=== PATIENT | female | born 1975 | race Caucasian/White ===

== ENCOUNTER → 2017-04-28 14:05 | Outpatient (CLI) | payer OTHER, SELFPAY ==
--- NOTE | 2017-04-28 14:10 | US_ITS ---
US thyroid HISTORY: History of thyroid nodules. ITS.REASON: THYROID NODULE ORDERING PHYSICIAN: Belinda Gipson PATIENT AGE: 41 years COMPARISON: None available FINDINGS: Right lobe: The right lobe is 4.9 x 1.4 x 2.2 cm. Small area of isoechogenicity along the posterior aspect of the right lobe centrally at 7 mm and may be due to a parathyroid gland. No obvious intrathyroid nodules evident on the right. Left lobe: 4.5 x 1 x 1.6 cm with some vague decreased echogenicity posteriorly in the mid polar region measuring approximate 6 mm suggesting a small isoechoic nodule. Isthmus: Minimally thickened at 4 mm IMPRESSION: 1. Mild bilateral thyroid enlargement. 2. Ill-defined 6 mm isoechoic nodule in the left with low suspicion for malignancy. 3. Probable parathyroid gland mid polar region on the right
== END ==
PROVIDERS: PCP Nurse Practitioner Family; Visit Provider Nurse Practitioner Family
DX: E04.1 Nontoxic single thyroid nodule (principal)
CPT/HCPCS: 76536

== ENCOUNTER → 2017-09-04 11:00 | Outpatient (CLI) | payer OTHER, SELFPAY ==
--- NOTE | 2017-09-04 12:07 | MR_ITS ---
MR head/brain wo/w con HISTORY: Dizziness with headache ITS.REASON: DIZZINESS ORDERING PHYSICIAN: Belinda Gipson PATIENT AGE: 42 years Comparison: TECHNIQUE: Standard multiplanar multiecho sequences are performed without and with gadolinium enhancement . FINDINGS: No midline shift, mass effect, intracranial hemorrhage, or hydrocephalus is evident. No enhancing lesions. No evidence of acute infarction. The cerebellopontine angles, cerebellum, and brainstem are unremarkable. There is a small subcortical T2 hyperintensity in the right frontal lobe nonspecific. This measures approximately 2 to 3 mm. This may be due to only seen on the axial and not on the coronal image. No mastoid effusion or sinus air-fluid level. No large aneurysms are evident. Small aneurysms may not be seen with this technique and may be better evaluated for with MRA clinically warranted. IMPRESSION: 1. No acute finding. 2. Small T2 white matter hyperintensity of the right parietal frontal junction which may be due to artifact. 3 month follow-up suggested to confirm stability or resolution
== END ==
PROVIDERS: PCP Nurse Practitioner Family; Visit Provider Nurse Practitioner Family
DX: R42 Dizziness and giddiness (principal)
CPT/HCPCS: 70553; A9576

== ENCOUNTER → 2017-11-10 10:43 | Outpatient (CLI) | payer OTHER, SELFPAY ==
--- NOTE | 2017-11-10 11:01 | CT_ITS ---
CT soft tissue neck w con INDICATION: ITS.REASON: NECK SWELLING ORDERING PHYSICIAN: Belinda Gipson PATIENT AGE: 42 years COMPARISON: None TECHNIQUE: Axial images are obtained with contrast. Sagittal and coronal reformatted images are reviewed as well. All CT scans at the facility use one or more dose reduction, viz: automated exposure control; ma/kV adjustment per patient size (including targeted exams where dose is matched to indication; i.e. head); or iterative reconstruction technique. FINDINGS: The parotid glands and submandibular glands are normal and symmetrical. The valleculae and piriform sinuses appear normal. The thyroid gland appears grossly normal. The common carotid arteries and internal carotid arteries appear normal bilaterally. There is no abnormal cervical lymphadenopathy noted. The lung apices appear clear bilaterally. The prevascular superior mediastinum if I talked like this it doesn't for deep to is unremarkable. IMPRESSION: Essentially unremarkable CT scan the neck with no abnormal cervical lymphadenopathy identified.
== END ==
PROVIDERS: PCP Family Medicine; Visit Provider Nurse Practitioner Family
DX: R22.1 Localized swelling, mass and lump, neck (principal)
CPT/HCPCS: 70491; Q9967

== ENCOUNTER → 2017-12-15 17:54 | Outpatient (CLI) | payer OTHER, SELFPAY | PROVIDERS: PCP Nurse Practitioner Family; Visit Provider Nurse Practitioner Family | DX: G47.30 Sleep apnea, unspecified (principal); G47.10 Hypersomnia, unspecified; R51 Headache; R06.83 Snoring | CPT/HCPCS: 95806 ==

== ENCOUNTER → 2018-01-13 09:30 | Outpatient (CLI) | payer OTHER, SELFPAY | PROVIDERS: PCP Nurse Practitioner Family; Visit Provider Nurse Practitioner Family | DX: R07.89 Other chest pain (principal); R94.31 Abnormal electrocardiogram [ECG] [EKG]; I10 Essential (primary) hypertension | CPT/HCPCS: 93017 ==

== ENCOUNTER → 2018-03-08 08:22 | Outpatient (CLI) | payer OTHER, SELFPAY ==
--- NOTE | 2018-03-08 08:24 | MR_ITS ---
MR head/brain wo/w con Ordering Physician: Silvia Quiroga MD Patient Age: 42 years: Female HISTORY: ITS.REASON: 3 month f/u abnormal prior imaging, migraine HISTORY migraine headaches daily use on the right side. TECHNIQUE: Pre and postcontrast imaging of brain : Precontrast Multiplanar FLAIR, T1, T2 weighted images along with axial diffusion/ADC imaging performed on 1.5 T. Siemens, MRI. Postcontrast imaging [id number] mLmL ProHance T1-weighted images axial & coronal plane performed COMPARISON : FINDINGS Normal anatomy. Normal cranial cervical junction. Sella, ventricles and basal cisterns appear satisfactory. Diffusion images show no recent or acute infarct or ischemia. Cerebral hemispheres appear normal. Normal benavidez and white matter patterns with no remarkable white matter findings or lesions on the sensitive FLAIR image set.. Posterior fossa appears satisfactory . CP angles clear. IACs unremarkable. Postcontrast images show no abnormal areas of enhancement. Scalp and skull unremarkable. The visualized paranasal sinuses are clear. Mastoid air cells well-developed and clear. Orbits unremarkable. IMPRESSION: Negative MRI of the brain. No significant findings. Within normal limits. No abnormal areas of enhancement L
== END ==
PROVIDERS: PCP Nurse Practitioner Family; Visit Provider Specialist
DX: R93.0 Abnormal findings on diagnostic imaging of skull and head, not elsewhere classified (principal); G43.909 Migraine, unspecified, not intractable, without status migrainosus; G47.33 Obstructive sleep apnea (adult) (pediatric); R51 Headache
CPT/HCPCS: 70553; A9576

== ENCOUNTER 2018-11-04 16:30 | Outpatient (RCR) | payer OTHER, SELFPAY | END 2018-11-04 16:35 | disposition home or self-care (01) | LOC: PT 16:30 | PROVIDERS: Visit Provider Nurse Practitioner Family | DX: M25.511 Pain in right shoulder (principal); G89.29 Other chronic pain; M62.89 Other specified disorders of muscle; G43.909 Migraine, unspecified, not intractable, without status migrainosus | CPT/HCPCS: 97010; 97012; 97014; 97035; 97110; 97140; 97163; G0283 ==

== ENCOUNTER → 2018-11-30 14:59 | Outpatient (POV) | payer OTHER, SELFPAY | PROVIDERS: Visit Provider Dermatology | DX: Z00.00 Encounter for general adult medical examination without abnormal findings (principal) ==

== ENCOUNTER → 2019-08-15 09:41 | Outpatient (CLI) | payer OTHER, SELFPAY ==
--- NOTE | 2019-08-15 09:45 | MM_ITS ---
PROCEDURE: MM DIG SCREENING MAMM BI W/CAD Digital Breast Tomosynthesis Included CLINICAL INDICATION: SCREENING There is no personal or of breast cancer. COMPARISON: No exams were available for comparison TECHNIQUE: Standard CC and MLO images and 3D Tomosynthesis was obtained. R2 CAD reviewed. FINDINGS: Moderate diffuse fibroglandular densities are seen in the central portions of both breasts and the findings are fairly symmetrical bilaterally. There is a benign-appearing calcification deep to the nipple left breast. There is no suspicious lesion and no suspicious microcalcifications. There are small nodes in both axilla. IMPRESSION: Moderate breast density with no suspicious lesions seen BI-RAD Category: 2 Benign Finding(s) FOLLOW-UP: 1YR 1 Year Follow-up (A letter has been sent to the patient regarding results of the study.) Dictated by: Dr. Fernando Colin MD 08/15/2019 18:[address] Fernando Colin MD in [place] 08/15/2019 18:08
== END ==
PROVIDERS: PCP Family Medicine; Visit Provider Family Medicine
DX: Z12.31 Encounter for screening mammogram for malignant neoplasm of breast (principal)
CPT/HCPCS: 77063; 77067

== ENCOUNTER → 2020-01-20 09:27 | Outpatient (CLI) | payer OTHER, SELFPAY ==
--- NOTE | 2020-01-20 09:27 | MR_ITS ---
PROCEDURE: MR HEAD/BRAIN WO CON Referring Doctor: Silvia Quiroga Patient Age:44Y CLINICAL INDICATION: memory impairment, headaches Migraines for many years worsening over the past 4 years. Visual disturbances with migraines. COMPARISON: MR BRAINWW MR head/brain wo/w con from 03/08/2018 TECHNIQUE: Multisequence imaging but T1, T2, FLAIR, ADC/diffusion image sequences utilized. Using primarily axial imaging but also sagittal T2 coronal FLAIR included. No IV contrast FINDINGS: Negative MRI of the brain. No abnormalities evident Normal anatomy. Normal cranial cervical junction. Pituitary and sella unremarkable suprasellar region satisfactory no acute nor prior infarct evident. No significant deep white-matter findings but no deep white-matter lesions on FLAIR image sequences.. The ventricles and basal cisterns appear satisfactory. No extra-axial findings. Posterior fossa appears normal. CP angles clear. What is seen at 7th and 8th nerve unremarkable on this noncontrast study. The visualized paranasal sinuses are clear only noting some borderline mucosal thickening at ethmoid air cells.+. Mastoid air cells IAC's unremarkable. Middle ear appears free from fluid Note: On final review note slight increased signal skull and scalp just superior to the frontal sinuses seen only on the axial and coronal FLAIR images. This was was not present before. However these regions skull appear stable and normal on the T2 and T1 images. Thus favor this is most likely merely minimal MRI artifact feature and not of significance but the frontal sinus appears clear. Brain beneath this area unremarkable IMPRESSION: . Negative MRI of the brain.. No abnormal intracranial findings with. Normal anatomy No deep white-matter findings.. Note: Subtle increased signal in skull and scalp seen anteriorly on FLAIR images only, favor is merely MRI artifact and not seen of the sequences. Thus favor merely mild field distortion artifact Dictated by: Ki Lucia MD 01/22/2020 12:12 Ki Lucia MD in [facility] 01/22/2020 12:12
== END ==
PROVIDERS: PCP Family Medicine; Visit Provider Specialist
DX: R41.3 Other amnesia (principal); R51 Headache
CPT/HCPCS: 70551

== ENCOUNTER → 2020-01-20 10:18 | Outpatient (CLI) | payer OTHER, SELFPAY ==
[2020-01-20 11:20] LABS: Erythrocyte Sedimentation Rate 10 mm/hr (0-20)
[2020-01-20 13:16] LABS: Thyroid Stimulating Hormone 0.74 uIU/mL (0.465-4.68)
[2020-01-20 13:51] LABS: Vitamin B12 340 pg/mL (239-931)
[2020-01-20 13:53] LABS: Folate 4.96 ng/mL
[2020-02-05 16:51] LABS: Antinuclear Antibodies (ANA) NEGATIVE
== END ==
PROVIDERS: Visit Provider Specialist
DX: R41.3 Other amnesia (principal); R51 Headache
CPT/HCPCS: 36415; 82607; 82746; 84443; 85651; 86038

== ENCOUNTER 2020-02-03 14:10 | Day surgery (SDC) | payer OTHER, SELFPAY ==
[2020-02-03 14:30] VITALS: BP 116/78; BP 120/84; BP 97/66; PULSE 70; PULSE 85; PULSE 86; PULSE 88; RESP 18; TEMP 36.7; O2SAT 100; O2SAT 98; BMI 35.0
--- NOTE | 2020-02-03 14:57 | P.PCN_ITS ---
- Procedure Date: 02/03/20 Time: 14:57 Anesthesiologist:: Hasmukh Carranza MD Complications:: None Pre-procedure Diagnosis:: Headaches with papilledema and pseudotumor cerebri Post-procedure Diagnosis:: Same Indications for Procedure:: Patient is a pleasant 44-year-old white female who is referred by Dr. Quiroga with chronic migraine headaches papilledema and suspected pseudotumor cerebri. She was sent for diagnostic lumbar puncture to obtain opening and closing pressures and obtaining CSF to send for indicated studies. Procedure Details:: Lumbar puncture under fluoroscopy Informed consent was obtained and the risk and benefits of the procedure was explained to the patient. Patient was taken to the procedure room placed in left lateral decubitus position. She was prepped and draped in sterile fashion. C-arm fluoroscopy was used to view the L5-S1 interspace. The skin and subcutaneous tissues were anesthetized using lidocaine. A 20-gauge spinal need le was inserted under fluoroscopic guidance into the L5-S1 interspace. After obtaining clear CSF opening pressures were measured and found to be 35 cm of water. We then obtained approximately 4 tubes of clear CSF with 7 to 8 mL in each tube. We withdrew approximately a total of 30 mL of clear CSF. Closing pressures were found to be 6 cm of water. The needle was withdrawn and Band-Aid was placed. Patient tolerated the procedure well with no complications. Plan and Disposition:: We will follow-up with her on a as needed basis. We will relay these results to Dr. Quiroga. I have also counseled her on the conservative treatments for post dural puncture headache.
== END 2020-02-03 15:05 | disposition home or self-care (01) ==
LOC: SC.PAINP 14:12
PROVIDERS: PCP Family Medicine; Visit Provider Anesthesiology
DX: H47.10 Unspecified papilledema (principal); G93.2 Benign intracranial hypertension; R51.9 Headache, unspecified; K21.9 Gastro-esophageal reflux disease without esophagitis; G47.33 Obstructive sleep apnea (adult) (pediatric); Z88.8 Allergy status to other drugs, medicaments and biological substances
CPT/HCPCS: 62272

== ENCOUNTER → 2020-02-08 13:15 | Day surgery (SDC) | payer OTHER, SELFPAY ==
[2020-02-08 13:29] VITALS: BP 129/87; PULSE 88; RESP 18; TEMP 36.6; O2SAT 100; BMI 34.7
[2020-02-08 14:36] VITALS: BP 140/78; PULSE 85; RESP 18
[2020-02-08 14:40] VITALS: BP 148/78; PULSE 84; RESP 18; O2SAT 98
--- NOTE | 2020-02-08 16:19 | HMH.PMPROC ---
- Procedure Date: 02/08/20 Time: 16:19 Anesthesiologist:: Hasmukh Carranza MD Complications:: None Pre-procedure Diagnosis:: Post dural puncture headache Post-procedure Diagnosis:: Same Indications for Procedure:: This patient is a pleasant 44-year-old white female who underwent lumbar puncture diagnostic for headaches and papilledema with pseudotumor cerebri diagnosis on 02/03/2020. Subsequent to this lumbar puncture she developed a post dural puncture headache. Headache was worse with sitting or standing. It was relieved by lying flat. She is tried and failed all conservative treatments including caffeine and fluids and rest. We will do a lumbar epidural blood patch today to see if this will help with her pain symptoms. Procedure Details:: Lumbar epidural blood patch Informed consent was obtained and the risk and benefits of the procedure was explained to the patient. The patient was taken to the procedure room. The patient was placed prone on the procedure table. The patient was prepped and draped in sterile fashion. C-arm fluoroscopy was used to view the lumbar spine. Skin and subcutaneous tissues were anesthetized using lidocaine. I placed an 18-gauge epidural needle and advanced into the L4-L5 interspace using fluoroscopic guidance and [id number] to air. After confirmation of needle placement in the epidural space with dye I injected 1 mL of venous blood drawn under sterile conditions. Patient tolerated the procedure well with no complications. Patient was observed in the clinic for 30 minutes after the procedure with complete resolution of her headache. Plan and Disposition:: We will follow-up with her on a as needed basis.
== END ==
PROVIDERS: PCP Family Medicine; Visit Provider Anesthesiology
DX: G97.1 Other reaction to spinal and lumbar puncture (principal); R51.9 Headache, unspecified
CPT/HCPCS: 62273; 77003

== ENCOUNTER → 2020-03-16 07:39 | Outpatient (CLI) | payer OTHER, SELFPAY ==
--- NOTE | 2020-03-16 07:39 | MR_ITS ---
PROCEDURE: MR VENOGRAPHY HEAD WO CON CLINICAL INDICATION: eval for venous thrombosis Hx of migraines evaluate for venous thrombosis. Pt states hx of increased csf and therapeutic spinal tap. COMPARISON: MR BRAINWW MR head/brain wo/w con from 03/08/2018 MR MR HEAD/BRAIN WO CON from 01/20/2020 TECHNIQUE: [id number] 2D images with MIP reformats FINDINGS: The superior sagittal sinus, right transverse sinus and sigmoid sinus, vein of Yomi, and inferior sagittal sinus have an unremarkable appearance. The left transverse sinus and sigmoid sinus are very small. This could be secondary to an old area sinus thrombosis with recanalization or could be congenital. There does not appear to be acute small venous sinus thrombosis. Review of previous MRI do not demonstrate any areas of venous infarcts IMPRESSION: Very small left transverse and sigmoid sinus which could be due to prior occlusion with recanalization or could be congenital in nature. No evidence of acute sinus thrombosis. Dictated by: Jeffery Ye MD 03/17/2020 11:29 Jeffery Ye MD in [place] 03/17/2020 11:29
== END ==
PROVIDERS: PCP Nurse Practitioner Family; Visit Provider Specialist
DX: G43.709 Chronic migraine without aura, not intractable, without status migrainosus (principal); G93.2 Benign intracranial hypertension; H47.10 Unspecified papilledema
CPT/HCPCS: 70544

== ENCOUNTER 2020-04-27 10:13 | Day surgery (SDC) | payer OTHER, SELFPAY ==
[2020-04-27 11:33] VITALS: BP 115/88; PULSE 77; RESP 18; TEMP 36.4; O2SAT 100; BMI 32.9
[2020-04-27 12:23] VITALS: BP 132/85; PULSE 85; RESP 18; O2SAT 98
[2020-04-27 12:25] VITALS: BP 142/83; PULSE 93; RESP 18; O2SAT 95
--- NOTE | 2020-04-27 12:35 | P.PCN_ITS ---
- Procedure Date: 04/27/20 Time: 12:35 Anesthesiologist:: Hasmukh Carranza MD Complications:: None Pre-procedure Diagnosis:: Papilledema with headaches Post-procedure Diagnosis:: Same Indications for Procedure:: Patient is a pleasant 44-year-old white female who is referred by Dr. Quiroga with increasing headaches and papilledema. She did have a lumbar puncture in January at which time her opening pressures were 35 cm of water and closing pressures were 6 cm of water. Additional work-up and CSF was ordered however the specimen was lost and this was not processed. She did have have a blood patch subsequent to this LP. She presents for repeat lumbar puncture today. We will measure opening and closing pressures and send CSF for additional work-up. Procedure Details:: Lumbar puncture Informed consent was obtained and the risk and benefits of the procedure was explained to the patient. The patient was taken to the procedure room. The back was prepped using ChloraPrep. The skin and subcutaneous tissues were anesthetized using lidocaine. A 20-gauge spinal needle was inserted and advanced into the intrathecal space. This was at the L5-S1 interspace. After confirmation of clear CSF opening pressures were taken and found to be 28 cm of water. We drained approximately 4 to 5 mL in each tube. After placing CSF into total of 4 tubes we withdrew approximately 25 mL of clear CSF. Closing pressures were found to be 10 cm of water. The needle was withdrawn and a Band- Aid was placed. Patient tolerated the procedure well with no complications. Plan and Disposition:: We will send CSF for additional work-up. Again opening pressures were 28 cm of water and closing pressures were 10 cm of water.
[2020-04-27 12:59] LABS: Glucose,CSF 70 mg/dl (40-70)
--- NOTE | 2020-04-27 13:12 | PC.NURSE ---
1254-IV started to right hand by RICKY Jones. #22 x1 attempt. IVF initiated at this time per MD order. 1256-4mg IV zofran given per md order. pt states she is unable to take Fioricet at this time d/t nausea. instructed pt and family to notify staff when she feels as though she can tolerate PO medication. 1305-pt reports nausea has eased. medicated with fioricet per MD order.
--- NOTE | 2020-04-27 13:15 | PC.NURSE ---
1305-pt reports nausea has eased after being medicated with IV Zofran. pt medicated with Fioricet per MD order.
--- NOTE | 2020-04-27 13:22 | PC.NURSE ---
pt continues to to rest in a supine position, cloth covering eyes, lights off. pt states that headache has not eased at all. IVF infusing without difficulty
[2020-04-27 13:26] LABS: Appearance,CSF Clear (Clear)
[2020-04-27 13:27] LABS: Appearance,CSF Clear (Clear); Red Blood Cell,CSF 0 cells/uL (0); Volume,CSF 15.9 mL; White Blood Cell,CSF 1 cells/uL (0-5); White Blood Cell,CSF 2 cells/uL (0-5)
--- NOTE | 2020-04-27 14:28 | PC.NURSE ---
1400-pt resting with eyes covered. IVF infusion without difficulty
--- NOTE | 2020-04-27 14:29 | PC.NURSE ---
pt resting in supine position. family at bedside. IVF infusing without difficulty. reports no further nausea, states headache is unchanged.
[2020-04-27 15:21] VITALS: BP 132/86; PULSE 86; RESP 18; TEMP 36.6; O2SAT 100
[2020-04-30 20:53] LABS: VDRL, Cerebrospinal Fluid Non Reactive (Non Rea:<1:1)
== END 2020-04-27 15:20 | disposition home or self-care (01) ==
LOC: SC.PAINP 10:14
PROVIDERS: Specialist; PCP Nurse Practitioner Family; Visit Provider Anesthesiology
DX: H47.10 Unspecified papilledema (principal); G44.89 Other headache syndrome; Z82.49 Family history of ischemic heart disease and other diseases of the circulatory system; K21.9 Gastro-esophageal reflux disease without esophagitis; F41.9 Anxiety disorder, unspecified; F32.9 Major depressive disorder, single episode, unspecified; Z79.899 Other long term (current) drug therapy; Z88.8 Allergy status to other drugs, medicaments and biological substances
CPT/HCPCS: 62272; 82945; 84155; 86592; 87070; 87205; 89051; 96366; 96372; 96374; J2405

== ENCOUNTER → 2020-04-30 09:09 | Outpatient (CLI) | payer OTHER, SELFPAY ==
--- NOTE | 2020-04-30 10:27 | P.PN_ITS ---
[facility] Anesthesia Checklist - Structural Data Admitted From: Home Planned Operative Procedure/s: epidural blood patch Consent for Planned Operative Procedure(s) Verified: Yes - Additional verifications Anesthesia Reactions: No Hx Blood Transfusions: No Blood Transfusion Reaction: No - Airway Assessment C-Spine Mobility Assessed: Yes TMJ Mobility Assessed: Yes Dentition: Good Dentition - Neurological Assessment Level of Consciousness: Awake, Alert, Appropriate - Anesthesia Plan Anesthesia Risk discussed: Yes Anesthesia Plan: Verified ASA Class: III Anesthesia Type: Epidural [facility] History I have reviewed the patient's past medical history: Yes Medical History: Reports:: Anxiety, Gastroesophageal Reflux Disease(GERD), Hypertension, Migraine Denies:: Cancer, Diabetes Mellitus Type 1, Diabetes Mellitus Type 2, MRSA, Seizures *Have you ever received a pneumonia vaccine?: No *Have you received a flu vaccine this season?: No Other Medical History: Reports: Thyroid Disease, Other. Denies: Blood Tr ansfusion Reaction Anesthesia experience/problems:: none Other Surgeries: Yes: Colonoscopy, , EGD, Hysterectomy-Total, Sinus Surgery Amputation: No Fractures: No - *Social History Smoking Status: Former smoker #Yrs smoked (if former smoker): 20 Alcohol Intake: never Alcohol Intake Frequency:: other Substance Use Type: denies use *Occupational Status:: employed Housing: house Household Members: spouse *Travel in the last 8 weeks: Inside the [place] - Psychiatric History Pschychiatric History:: Reports:: Anxiety Family Hx:: Hypertension, Thyroid Disorder, Diabetes
== END ==
PROVIDERS: PCP Nurse Practitioner Family; Visit Provider Anesthesiology
DX: H47.10 Unspecified papilledema; G97.1 Other reaction to spinal and lumbar puncture
CPT/HCPCS: 62273

== ENCOUNTER → 2022-12-25 14:39 | Outpatient (CLI) | payer BC, OTHER, SELFPAY ==
--- NOTE | 2022-12-25 14:43 | US_ITS ---
FINAL REPORT TECHNIQUE: Limited sonographic images of the thyroid were obtained. CLINICAL HISTORY: THYROID DISORDER FINDINGS: The right lobe of the thyroid measures 5.3 x 1.6 x 1.6 cm. No mass or nodule is identified. The left lobe of the thyroid measures 4.7 x 1.1 x 1.2 cm. There is a solid, hypoechoic nodule measuring 8 x 6 x 4 mm consistent with TI-RADS category 4. The isthmus measures 4 mm. IMPRESSION: Left thyroid lobe nodule consistent with TI-RADS category 4. No follow-up is required. Reviewed, Interpreted and Dictated by Norbert Vasquez III, MD Transcribed by Opal Ornelas Authenticated and [facility]
== END ==
PROVIDERS: PCP Nurse Practitioner Family; Visit Provider Nurse Practitioner Family
DX: E07.9 Disorder of thyroid, unspecified (principal)
CPT/HCPCS: 76536

== ENCOUNTER 2023-03-17 16:38 | Emergency (ER) | payer BC, OTHER, SELFPAY ==
[2023-03-17 17:20] VITALS: BP 158/89; PULSE 70; RESP 18; TEMP 36.8; O2SAT 99; BMI 30.9
--- NOTE | 2023-03-17 17:25 | EXP.UTC ---
Discharge Plan Disposition Patient Disposition: Home, Self-Care Condition: Good Prescriptions Prescriptions: New benzonatate [benzonatate] 100 mg capsule 100 mg PO TIDP PRN (Reason: Cough) Qty: 30 0RF levofloxacin [levofloxacin] 500 mg tablet 500 mg PO DAILY Qty: 7 0RF methylprednisolone 4 mg Tablets,Dose Pack 4 mg PO DIRECTED Qty: 21 0RF guaifenesin [Mucinex] 600 mg tablet extended release 12hr 600 - 1,200 mg PO BIDP PRN (Reason: Congestion) Qty: 30 0RF No Action dexlansoprazole [Dexilant] 60 mg capsule,biphase delayed releas 60 mg PO DAILY 30 Days Qty: 30 aspirin 325 mg tablet,delayed release (DR/EC) 325 mg PO DAILY Qulipta 60 mg tablet 60 mg PO DAILY Qty: 30 6RF Rx Instructions: 1 p.o. daily for migraine prevention Nurtec ODT 75 mg tablet,disintegrating 75 mg PO ONCE PRN (Reason: migraine headache) Qty: 10 11RF Rx Instructions: 1 tablet, (75 mg, ODT) p.o. daily as needed for migraines. Max amount allowed 2 tablets a day or 4 tablets in a week acetazolamide 250 mg tablet 500 mg PO BID Referrals Follow up/Referrals: Manuel Dempsey APRN [Primary Care Provider] - See instructions Activity Restrictions/Add. Instructions Additional Instructions/Restrictions: Drink plenty of fluids. Take tylenol or ibuprofen for pain or fever. Take the medications as directed. Follow up with your regular doctor. GO TO THE ER FOR ANY WORSENING SYMPTOMS Don't start the oral steroids until tomorrow, since you had the shot here today. Clinical Impressions Clinical Impression: Acute bronchitis, Sinusitis Instructions Patient Instructions: Sinusitis, DI for Sinusitis, Ceftriaxone Injection, Dexamethasone Injection Discharge ED Provider: Nba Castaneda [facility] HPI General Stated complaint: diff breathing, gladys, ear ache Time Seen by Provider: 03/17/23 17:25 History of Present Illness Provider Complaint: She is here with continued chest and sinus congestion. Related Data Home Medications Medication Instructions Recorded Confirmed dexlansoprazole 60 mg 60 mg PO DAILY GERD 30 days #30 05/28/20 03/17/23 capsule,biphase delayed release caps (Dexilant) aspirin 325 mg tablet,delayed 325 mg PO DAILY 12/31/21 03/17/23 release acetazolamide 250 mg tablet 500 mg PO BID benign intracranial 11/06/22 03/17/23 HTN Previous Rx's Medication Instructions Recorded Nurtec ODT 75 mg disintegrating 75 mg PO ONCE PRN migraine 12/31/21 tablet (rimegepant) headache #10 tabs Qulipta 60 mg tablet (atogepant) 60 mg PO DAILY Chronic intractable 12/31/21 migraine #30 tabs benzonatate 100 mg capsule 100 mg PO TIDP PRN Cough #30 caps 03/17/23 guaifenesin 600 mg tablet, 600 - 1,200 mg PO BIDP PRN 03/17/23 extended release 12 hr (Mucinex) Congestion #30 tabs levofloxacin 500 mg tablet 500 mg PO DAILY #7 tabs 03/17/23 methylprednisolone 4 mg tablets in 4 mg PO DIRECTED #21 tabs 03/17/23 a dose pack Allergies Allergy/AdvReac Type Severity Reaction Status Date / Time prednisone Allergy Intermediate Verified 03/17/23 17:31 clopidogrel [From Plavix] AdvReac Intermediate vomiting, Verified 03/17/23 17:31 joint pain PFSH PFSH Disclaimer: The information contained in this section may have been updated after the patient was seen, as this information can be updated by other users. Surgical History H/O sinus surgery History of History of partial hysterectomy Family History Other Cancer Coronary artery disease Diabetes Heart attack Hypertension Kidney disease Thyroid disorder Social History Smoking Status: Former smoker alcohol intake: never substance use type: denies use current occupational status: unemployed Travel in the last 8 weeks: None h
--- NOTE | 2023-03-17 17:26 | XR_ITS ---
PROCEDURE INFORMATION: Exam: XR Chest Exam date and time: 03/17/2023 5:27 PM Age: 47 years old Clinical indication: Cough and shortness of breath TECHNIQUE: Imaging protocol: Radiologic exam of the chest. Views: 2 views. COMPARISON: No relevant prior studies available. FINDINGS: Lungs: Unremarkable. No consolidation. Pleural spaces: Unremarkable. No pleural effusion. No pneumothorax. Heart/Mediastinum: Unremarkable. No cardiomegaly. Bones/joints: Unremarkable. IMPRESSION: No acute findings.
[2023-03-17 19:17] VITALS: BP 158/89; PULSE 70; RESP 18; TEMP 36.8; O2SAT 99
--- NOTE | 2023-03-17 19:19 | PC.NURSE ---
Spoke with pt due to allergy of prednisone. She stated that she has had a dexamethasone shot before and does well with it.
== END 2023-03-17 19:17 | disposition home or self-care (01) ==
PROVIDERS: Emergency Provider Nurse Practitioner Family; PCP Nurse Practitioner Family
DX: J20.9 Acute bronchitis, unspecified (principal); J01.90 Acute sinusitis, unspecified; R09.89 Other specified symptoms and signs involving the circulatory and respiratory systems; R09.81 Nasal congestion; H92.09 Otalgia, unspecified ear; Z87.891 Personal history of nicotine dependence
CPT/HCPCS: 71046; 96372; 99204; 99212; G0463; J0696

== ENCOUNTER 2023-06-11 14:08 | Outpatient (CLI) | payer BC, OTHER, SELFPAY ==
[2023-06-11 14:15] VITALS: BP 114/72; PULSE 75; RESP 16; TEMP 36.2; O2SAT 98
[2023-06-11] MEDS: SODIUM CHLORIDE 0.9% IV (14:48)
[2023-06-11] MEDS: EPTINEZUMAB JJMR IV (14:48)
[2023-06-11] MEDS: SODIUM CHLORIDE 0.9% 10ML FLUSH SYRINGE 10 ML IV (14:48)
[2023-06-11] MEDS: SODIUM CHLORIDE 0.9% 50ML BAG 50 ML IV (14:48)
[2023-06-11 15:30] VITALS: BP 111/64; PULSE 74; RESP 16; TEMP 36.3; O2SAT 99
== END 2023-06-11 15:50 | disposition home or self-care (01) ==
LOC: INF 14:10
PROVIDERS: PCP Nurse Practitioner Family; Visit Provider Student in an Organized Health Care Education/Training Program
DX: G43.711 Chronic migraine without aura, intractable, with status migrainosus (principal)
CPT/HCPCS: 96413; J3032

== ENCOUNTER 2023-07-04 03:53 | Outpatient (CLI) | payer BC, OTHER, SELFPAY ==
--- NOTE | 2023-07-04 03:56 | XR_ITS ---
PROCEDURE INFORMATION: Exam: XR Left Foot Complete; Alignment Exam date and time: 07/04/2023 4:00 AM Age: 47 years old Clinical indication: Pain; Foot; Patient HX: States possible bone spur left side; Additional info: Foot pain TECHNIQUE: Imaging protocol: Radiologic exam of the left foot. Views: 3 or more views. COMPARISON: No relevant prior studies available. FINDINGS: Bones/joints: Achilles tendon insertional enthesophyte. Inferior calcaneal enthesophyte. Os peroneus. Soft tissues: See Bones/joints finding. IMPRESSION: Heel spur congruent with patient's provided history. No acute osseous abnormality.
--- NOTE | 2023-07-04 03:56 | XR_ITS ---
PROCEDURE INFORMATION: Exam: XR Right Foot Complete; Alignment Exam date and time: 07/04/2023 4:00 AM Age: 47 years old Clinical indication: Pain; Foot; Patient HX: Possible bone spur left side; Additional info: Foot pain TECHNIQUE: Imaging protocol: Radiologic exam of the right foot. Views: 3 or more views. COMPARISON: No relevant prior studies available. FINDINGS: Bones/joints: Os peroneus. Achilles tendon insertion enthesophyte. Bipartite sesamoid. Soft tissues: See Bones/joints finding. IMPRESSION: 1. No acute osseous abnormality. 2. Additional findings as above.
== END 2023-07-04 23:59 ==
PROVIDERS: PCP Nurse Practitioner Family; Visit Provider Nurse Practitioner
DX: M79.671 Pain in right foot (principal); M79.672 Pain in left foot
CPT/HCPCS: 73630

== ENCOUNTER 2023-09-11 14:29 | Outpatient (CLI) | payer BC, SELFPAY ==
[2023-09-11 14:55] VITALS: BP 155/78; PULSE 76; RESP 18; TEMP 36.8; O2SAT 99
[2023-09-11] MEDS: SODIUM CHLORIDE 0.9% IV (14:55)
[2023-09-11] MEDS: EPTINEZUMAB JJMR IV (14:55)
[2023-09-11 15:25] VITALS: BP 128/74; PULSE 74; RESP 18; O2SAT 99
[2023-09-11] MEDS: SODIUM CHLORIDE 0.9% 10ML FLUSH SYRINGE 10 ML IV (15:37)
[2023-09-11] MEDS: SODIUM CHLORIDE 0.9% 50ML BAG 50 ML IV (15:37)
== END 2023-09-11 15:36 | disposition home or self-care (01) ==
LOC: INF 14:30
PROVIDERS: PCP Nurse Practitioner Family; Visit Provider Student in an Organized Health Care Education/Training Program
DX: G43.711 Chronic migraine without aura, intractable, with status migrainosus (principal)
CPT/HCPCS: 96413; J3032

== ENCOUNTER 2023-11-03 12:55 | Outpatient (CLI) | payer BC, SELFPAY ==
--- NOTE | 2023-11-03 13:00 | US_ITS ---
FINAL REPORT CLINICAL HISTORY: ENLARGED LYMPH NODES FINDINGS: Limited sonographic images of the bilateral parotid and submandibular glands were obtained. The salivary glands are unremarkable without mass or fluid collection. In the right side of the neck at the area of interest is normal-appearing fat. There are benign appearing upper cervical lymph nodes bilaterally, largest on the left measures 1.9 cm. IMPRESSION: Unremarkable salivary glands. Mildly enlarged left upper cervical lymph node. Reviewed, Interpreted and Dictated by Bindu Bynum MD Transcribed by Opal Ornelas Authenticated and [facility][1]
== END 2023-11-03 23:59 | disposition home or self-care (01) ==
LOC: RAD 12:56
PROVIDERS: PCP Nurse Practitioner Family; Visit Provider Nurse Practitioner Family
DX: R59.0 Localized enlarged lymph nodes (principal)
CPT/HCPCS: 76536

== ENCOUNTER 2023-11-13 13:02 | Outpatient (CLI) | payer BC, SELFPAY ==
--- NOTE | 2023-11-13 13:04 | CA_ITS ---
FINAL REPORT TECHNIQUE: Graded compression, spectral analysis and ultrasound images of the venous system of the upper extremity were obtained. CLINICAL HISTORY: IV injury to Left hand vein 4 weeks ago with persistant pain and palpable cord. COMPARISON: None FINDINGS: There is no evidence of deep venous thrombosis. There is thrombophlebitis of the cephalic vein to the hand. IMPRESSION: No evidence of deep venous thrombosis of the left upper extremity. Thrombophlebitis. Reviewed, Interpreted and Dictated by Дмитрий Lopez MD Transcribed by Radha Rosales Authenticated and [facility]
== END 2023-11-13 23:59 | disposition home or self-care (01) ==
LOC: RT 13:02
PROVIDERS: PCP Nurse Practitioner Family; Visit Provider Nurse Practitioner Family
DX: I80.8 Phlebitis and thrombophlebitis of other sites (principal)
CPT/HCPCS: 93971

== ENCOUNTER 2023-11-24 13:57 | Outpatient (CLI) | payer BC, SELFPAY ==
--- NOTE | 2023-11-24 13:57 | US_ITS ---
PROCEDURE: US TRANSVAGINAL CLINICAL INDICATION: right lower quadrant pain COMPARISON: No exams were available for comparison FINDINGS: Transvaginal sonographic images of the pelvis were obtained. UTERUS: Surgically absent. The vaginal vault is intact. There is a small calcification at the vaginal vault. LEFT OVARY: Not visualized RIGHT OVARY: 2.6 cmx 4.3cmx1.8 cm. With a volume of 10.5ml. There is a 1.3 cm x 1.5 cm x 1.1 cm follicle in the right ovary. There are small calcifications within the right ovary. Right ovary is seen and appears normal.. Doppler flow to right ovary is seen. There is no fluid in the cul-de-sac. IMPRESSION: 1. The uterus is surgically absent. The vaginal vault is intact. There is a small calcification at the vaginal vault. 2. The left ovary is not visualized and likely has been surgically removed. 3. The right ovary appears normal with a small 1.5 cm follicle. 4. No fluid in the cul-de-sac. Dictated by: Jose Luis Sanches MD 11/24/2023 16:51 Jose Luis Sanches MD in [place] 11/24/2023 16:51
== END 2023-11-24 23:59 | disposition home or self-care (01) ==
LOC: RAD 13:57
PROVIDERS: PCP Nurse Practitioner Family; Visit Provider Obstetrics & Gynecology
DX: R10.31 Right lower quadrant pain (principal); G89.29 Other chronic pain
CPT/HCPCS: 76830

== ENCOUNTER 2023-12-17 13:59 | Outpatient (CLI) | payer BC, SELFPAY ==
[2023-12-17 14:28] VITALS: BP 118/70; PULSE 75; RESP 18; O2SAT 97
[2023-12-17 15:10] VITALS: BP 114/79; PULSE 66; RESP 18; O2SAT 97
== END 2023-12-17 15:10 | disposition home or self-care (01) ==
LOC: INF 14:00
PROVIDERS: PCP Nurse Practitioner Family; Visit Provider Student in an Organized Health Care Education/Training Program
DX: G43.711 Chronic migraine without aura, intractable, with status migrainosus (principal); Z79.899 Other long term (current) drug therapy
CPT/HCPCS: 96365; 96413; J3032

== ENCOUNTER 2024-01-27 14:00 | Outpatient (RCR) | payer BC, SELFPAY ==
--- NOTE | 2023-11-02 13:41 | HMH.PTOPEV ---
PT Outpatient Evaluation Rehab PT Outpatient Evaluation Start: 11/02/23 11:02 Freq: Status: Active Protocol: Document 11/02/23 11:03 MEEK (Rec: 11/02/23 12:32 MEEK [id number]) E-signed By Irasema Beltran, PT Outpatient Therapy Subjective History Subjective History This is an initial evaluation for 48 y/o Lynda Brito who presents to PT with c/o B plantar fasciitis. Pt reports she works at [employer] (off on short-term disability). Pt reports these symptoms began about 2.5 years ago and have worsened since. The left foot is the worst but both hurt. Pt reports symptoms are worst in the morning. Pt reports he she has bone spurs in both heels. Pt wears steel-toe shoes when she does work and reports she has not found any shoe inserts that help her. Pt has been through several shoe inserts. Pt reports multiple charley horses in B LE throughout the night. Pt reports she wore a night splint every night for 6 weeks but was limited by cramping and no longer uses them. Pt reports she uses a massage gun which provides some relief. Foot x-ray showed no acute osseous abnormality. PMH: Migraines, intracranial hypertension, sleep apnea, no pacemaker, no personal hx of cancer New diagnosis of cancer in past 12 No months? Chief Complaint Pain Symptom Type Ache,Sharp,Stabbing Symptoms Relieved By Rest/Positioning,Heat,Ice Symptoms Aggravated By Standing,Walking Prior Functional Limitations None Current Functional Limitations Lifting,Housework,Sleeping, Standing,Recreation Activity, Walking,Stairs Symptom Description Constant but Variable Level of pain today (0-10) 2 Pain scale - at its best (0-10) 2 Pain scale - at its worst (0-10) 8 Ankle/Foot Eval Gait Observation General Gait Pattern Observation Antalgic Gait Palpation Tenderness right Ankle/Foot Palpation Findings Tenderness Ankle/Foot Palpation Overall Comment 2/3 TTP plantar fascia and achilles tendon left Ankle/Foot Palpation Findings Tenderness Ankle/Foot Palpation Overall Comment 2/3 TTP plantar fascia and achilles tendon ROM right Ankle/Foot Dorsiflexion w/Knee Flexed 0/neutral, painful Active Range of Motion (degrees) Ankle/Foot Plantar Flexion Active Range WNL, pain-free of Motion (degrees) Ankle/Foot Eversion Active Range of WNL, pain-free Motion (degrees) Ankle/Foot Inversion Active Range of WNL, pain-free Motion (degrees) left Ankle/Foot Dorsiflexion w/Knee Flexed -3 deg, painful Active Range of Motion (degrees) Ankle/Foot Plantar Flexion Active Range WNL, pain-free of Motion (degrees) Ankle/Foot Eversion Active Range of WNL, pain-free Motion (degrees) Ankle/Foot Inversion Active Range of WNL, pain-free Motion (degrees) Ankle/Foot ROM Limitations Soft Tissue Tightness,Pain MMT bilateral Ankle Dorsiflexion Strength Grade 4 Good Ankle Plantarflexion Strength Grade 4 Good Foot Eversion Strength Grade 5 Normal Foot Inversion Strength Grade 4 Good Special Tests Ankle Eversion Test Negative Left,Negative Right Talar Tilt Test Negative Left,Negative Right Lower Extremity Functional Index Activities Today, do you or would you have any difficulty at all with: a.Any of your usual work, housework or Moderate difficulty school activities b. Your usual hobbies, recreational or Moderate difficulty sporting activities c. Getting into or out of the bath A little bit of difficulty d. Walking between rooms Moderate difficulty e. Putting on your shoes or socks No difficulty f. Squatting Moderate difficulty g. Lifting an object, like a bag of No difficulty groceries from the floor h. Performing light activities around Moderate difficulty your home i. Performing heavy activities around Moderate difficulty your home j. Getting into or out of a car Moderate difficulty k. Walking 2 blocks Moderate difficulty l. Walking a mile Quite a bit of difficulty m. Going up or down 10 stairs (about 1 Moderate difficulty flight of stairs) n. Standing for 1 hour Moderate difficulty o. Sitting for 1 hour No difficulty p. Running on even ground Quite a bit of difficulty q. Running on uneven ground Quite a bit of difficulty r. Making sharp turns while running fast Quite a bit of difficulty s. Hopping Moderate difficulty t. Rolling over in bed No difficulty LEFI Score Lower Extremity Functional Index Score 45 Miscellaneous Dx PT Eval Objective Objective Windlass Test: Positive Outpatient Therapy Assessment Impairments Problems/Impairmments Palpation Tenderness,Impaired Range of Motion,Impaired Strength,Impaired Gait Pattern ,Impaired Walking,Impaired Standing,Impaired Household Care,Impaired Stair Climbing, Impaired Stepping on Uneven Surface,Impaired Recreational Activities,Impaired Running, Impaired Work Activities, Subjective C/O Pain Prognosis Rehab Potential Good Comment Pt's subjective complaints and objective findings consistent with her medical diagnosis of bilateral plantar fasciitis. Pt would benefit from OP PT to address deficits and decrease pain. Clinical Impression Consistent with Diagnosis Yes Consistent with Plantar fasciitis Short Term Goals Number of Weeks 4 Increase Range of Motion Yes: B ankle DF AROM increase to 5 degrees Improve LEFI Score Yes: Increase to 48/80 to improve LE functioning and improve QOL. 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 Increase Range of Motion Yes: B ankle DF AROM increase to 15 degrees Increase Strength Yes: 5/5 B ankle MMT to maximize functional strength of ankle Improve LEFI Score Yes: Increase to 55/80 to improve LE functioning and improve QOL. Decrease Subjective C/O Pain Yes: At worst pain 4/10 to decrease pain severity. Patient to be Ind w/ Advanced HEP Yes Outpatient Therapy Plan of Care Treatment Plan May Include Therapeutic Exercise Including Home Yes Exercise Program Manual Therapy Techniques Yes Neuromuscular Re-education Yes Therapeutic Activities to Return to Yes Previous Functional/Work Level Gait Training Yes ADL/Self Care Education Yes Dry Needling Yes Thermal Modalities Yes Electrical Stimulation Yes Ultrasound/Phonophoresis Yes Iontophoresis Yes Orthotics/Bracing/Splinting Yes Vasopneumatic Compression Pump Yes Massage Yes Eval/Re-Eval Yes Frequency Times per week 2x Duration Number of Weeks 6-8 weeks Addendums This patient is a candidate for social No or vocational rehab? Patient/Guardian verbally acknowledges Yes understanding of treatment program and consents to further treatment? Patient/Guardian verbally acknowledges Yes understanding of diagnosis, prognosis and goals for treatment? Eval Complexity PT Charges 73870 - Low Complexity Shoulder/Elbow Eval Shoulder Objective Measurements Elbow Objective Measurements PHYSICIAN CERTIFICATION: I certify the specified therapy services for Lynda Brito are required, authorized, and reviewed every 30 days.
--- NOTE | 2023-12-03 07:16 | HMH.RHREAS ---
Rehab Reassessment Rehab OP Re-assessment Start: 11/02/23 11:02 Freq: Status: Active Protocol: Document 12/02/23 13:32 MEEK (Rec: 12/02/23 16:09 MEEK [id number]) E-signed By Irasema Beltran PT Lower Extremity Functional Index Activities Today, do you or would you have any difficulty at all with: a.Any of your usual work, housework or Moderate difficulty school activities b. Your usual hobbies, recreational or Moderate difficulty sporting activities c. Getting into or out of the bath No difficulty d. Walking between rooms Moderate difficulty e. Putting on your shoes or socks No difficulty f. Squatting A little bit of difficulty g. Lifting an object, like a bag of No difficulty groceries from the floor h. Performing light activities around Moderate difficulty your home i. Performing heavy activities around Moderate difficulty your home j. Getting into or out of a car No difficulty k. Walking 2 blocks Moderate difficulty l. Walking a mile Quite a bit of difficulty m. Going up or down 10 stairs (about 1 Moderate difficulty flight of stairs) n. Standing for 1 hour Moderate difficulty o. Sitting for 1 hour No difficulty p. Running on even ground Quite a bit of difficulty q. Running on uneven ground Quite a bit of difficulty r. Making sharp turns while running fast Extreme difficulty or unable to perform activity s. Hopping Moderate difficulty t. Rolling over in bed No difficulty LEFI Score Lower Extremity Functional Index Score 48 Rehab Re-assessment Subjective Subjective Pt reports she still has soreness in her L heel d/t going back to work. Pt reports she thinks PT has helped her with her soreness and stiffness in her heels/ feet. At worst pain: 7/10 Objective Objective Notes R ankle DF AROM: 15deg L ankle DF AROM: 12deg Ankle strength: 5/5 in all planes bilaterally ( no pain during MMTs) Palpation: TTP: 1/4 TTP B heels, Achilles less taut and 0/4 TTP this date. Gait: slightly antalgic, decrease WBing LLE Assessment Progress Assessment Progressing as Expected Assessment Notes This is a reassessment for Lynda Brito who presents to PT for c/o B plantar fasciitis . Since IE, pt has been seen for 7 treatment visits that have consisted of modalities prn, education, and therapeutic exercises focusing on heel ROM and foot/ankle strength. Pt with good attendance to scheduled PT visits and reports adherence to HEP. Since IE, pt with improvements in B DF AROM, subjective complaints of pain, and decreased TTP. Pt still presents with impaired L DF ROM, gait, and subjective c/o pain. Pt would continue to benefit from skilled outpatient physical therapy to address remaining deficits and achieve LTGs. Patient goals met ST/4 1) B ankle DF AROM increase to 5 degrees 2) Increase to 48/80 to improve LE functioning and improve QOL. 3) IND with HEP 4) Decrease at worst pain to 6 /10 LTG: in process Goals Not Met LTGs and at worst pain goal Plan Plan Continue POC Frequency of Therapy 2x Duration of therapy 4-5 Time and Billing Re-Eval Time 10 PHYSICIAN CERTIFICATION: I certify the specified therapy services for Lynda Brito are required, authorized, and reviewed every 30 days.
--- NOTE | 2024-01-01 15:29 | HMH.RHREAS ---
Rehab Reassessment Rehab OP Re-assessment Start: 11/02/23 11:02 Freq: Status: Active Protocol: Document 01/01/24 13:48 MEEK (Rec: 01/01/24 15:29 MEEK [id number]) E-signed By Irasema Beltran PT Lower Extremity Functional Index Activities Today, do you or would you have any difficulty at all with: a.Any of your usual work, housework or Moderate difficulty school activities b. Your usual hobbies, recreational or Quite a bit of difficulty sporting activities c. Getting into or out of the bath No difficulty d. Walking between rooms Quite a bit of difficulty e. Putting on your shoes or socks No difficulty f. Squatting Quite a bit of difficulty g. Lifting an object, like a bag of No difficulty groceries from the floor h. Performing light activities around Quite a bit of difficulty your home i. Performing heavy activities around Quite a bit of difficulty your home j. Getting into or out of a car No difficulty k. Walking 2 blocks Quite a bit of difficulty l. Walking a mile Extreme difficulty or unable to perform activity m. Going up or down 10 stairs (about 1 Moderate difficulty flight of stairs) n. Standing for 1 hour Moderate difficulty o. Sitting for 1 hour No difficulty p. Running on even ground Quite a bit of difficulty q. Running on uneven ground Quite a bit of difficulty r. Making sharp turns while running fast Extreme difficulty or unable to perform activity s. Hopping Quite a bit of difficulty t. Rolling over in bed No difficulty LEFI Score Lower Extremity Functional Index Score 39 Rehab Re-assessment Subjective Subjective Pt with consistent pain reports of pain when on feet for multiple hours a day/when working. Pt reports she thinks PT has helped her with her soreness and stiffness in her heels/ feet. At worst pain: 7/10 when WBing L heel. R does not cause as many issues with pain. Pt reports she ordered a PF wrap since taping helped. Pt returns to her physician on the Dec. Objective Objective Notes R ankle DF AROM: 15 deg L ankle DF AROM: 13 deg Ankle strength: 5/5 in all planes bilaterally (no pain during MMTs) Palpation: TTP: 1/4 TTP B heels, Achilles less taut and 0/4 TTP this date. Gait: slightly antalgic, decrease WBing LLE Assessment Progress Assessment Slower Than Expected Assessment Notes This is a reassessment for Lynda Brito who presents to PT for c/o B plantar fasciitis . Since IE, pt has been seen for 16 treatment visits that have consisted of modalities prn, education, and therapeutic exercises focusing on heel ROM and foot/ankle strength. Pt has consistently received phono with dex, estim , and massage. Pt reports some support provided by the KT tape so she purchased arch support braces for PF. Pt still presents with erythema and TTP red spot on L medial heel. Pt reports good soft tissue relief with the massage techniques. Pt with good attendance to scheduled PT visits and reports adherence to HEP. Since IE, pt with improvements in B DF AROM, subjective complaints of pain, and decreased TTP. Pt still presents with impaired L DF ROM, gait, and subjective c/o pain L heel pain. Pt would continue to benefit from skilled outpatient physical therapy for 1-2 more weeks to address remaining deficits and achieve LTGs. If pt does not show further improvement after 1-2 more weeks, PT recommending pt return to her physician for further management. Patient goals met ST LT Plan Plan Continue POC for 2-3 more weeks Frequency of Therapy 2x weekly Duration of therapy 2-3 weeks Time and Billing Re-Eval Time 10 Re-Eval Billing Units 1 PHYSICIAN CERTIFICATION: I certify the specified therapy services for Lynda Brito are required, authorized, and reviewed every 30 days.
== END 2024-01-27 23:59 | disposition home or self-care (01) ==
LOC: PT 14:00
PROVIDERS: Visit Provider Nurse Practitioner
DX: M72.2 Plantar fascial fibromatosis (principal)
CPT/HCPCS: 97014; 97035; 97110; 97140; 97163; 97164; 97535; G0283

== ENCOUNTER 2024-03-24 14:11 | Outpatient (CLI) | payer BC, SELFPAY ==
[2024-03-24] MEDS: SODIUM CHLORIDE 0.9% 50ML BAG 50 ML IV (14:36)
[2024-03-24] MEDS: SODIUM CHLORIDE 0.9% IV (14:36)
[2024-03-24] MEDS: EPTINEZUMAB JJMR IV (14:36)
[2024-03-24 14:40] VITALS: BP 109/71; PULSE 69; RESP 17
[2024-03-24 15:20] VITALS: BP 109/78; PULSE 68; RESP 16
== END 2024-03-24 15:30 | disposition home or self-care (01) ==
LOC: INF 14:12
PROVIDERS: PCP Nurse Practitioner Family; Visit Provider Student in an Organized Health Care Education/Training Program
DX: G43.711 Chronic migraine without aura, intractable, with status migrainosus (principal)
CPT/HCPCS: 96413; J3032

== ENCOUNTER 2024-05-28 15:45 | Outpatient (CLI) | payer OTHER, SELFPAY ==
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
== END 2024-05-28 23:59 | disposition home or self-care (01) ==
PROVIDERS: PCP Nurse Practitioner Family; Visit Provider Nurse Practitioner Family
DX: M54.6 Pain in thoracic spine (principal)
CPT/HCPCS: 72070

== ENCOUNTER 2024-06-22 14:05 | Outpatient (CLI) | payer BC, SELFPAY ==
[2024-06-22] MEDS: EPTINEZUMAB JJMR IV (14:28)
[2024-06-22] MEDS: SODIUM CHLORIDE 0.9% 50ML BAG 50 ML IV (14:28)
[2024-06-22] MEDS: SODIUM CHLORIDE 0.9% IV (14:28)
[2024-06-22 14:33] VITALS: BP 137/78; PULSE 82; RESP 18; O2SAT 97
[2024-06-22 15:17] VITALS: BP 133/81; PULSE 80; RESP 18; O2SAT 97
== END 2024-06-22 15:17 | disposition home or self-care (01) ==
LOC: INF 14:07
PROVIDERS: PCP Nurse Practitioner Family; Visit Provider Student in an Organized Health Care Education/Training Program
DX: G43.711 Chronic migraine without aura, intractable, with status migrainosus (principal)
CPT/HCPCS: 96413; J3032

== ENCOUNTER 2024-08-16 13:00 | Outpatient (RCR) | payer BC, SELFPAY | END 2024-08-16 23:59 | disposition home or self-care (01) | LOC: PT 13:00 | PROVIDERS: PCP Nurse Practitioner Family; Visit Provider Nurse Practitioner Family | DX: M54.2 Cervicalgia (principal); M54.9 Dorsalgia, unspecified | CPT/HCPCS: 97014; 97110; 97140; 97163; 97530; G0283 ==

== ENCOUNTER 2024-09-05 08:41 | Outpatient (CLI) | payer BC, SELFPAY ==
--- NOTE | 2024-09-05 | CA_ITS ---
APPROVED REPORT EXAM: Comprehensive 2D, Doppler, and color-flow Echocardiogram Drilling Inspector: Gabriela Manzo RT(R) Ht: 5 ft 6 in Wt: 218lbs BSA: 2.07 BP: 115/77 mmHg Indications: murmur, ex smoker, GERD, MIKALA, extensive migraine history. Echo Enhancing Agent Indication: Rule out Shunt Agent(s) / Amount(s) Used: Agitated Saline 15 cc 2D Dimensions Left Atrium 2.87 cm F: 2.7 - 3.8 LA Volume 13.00 mL LVOT 1.96 cm (M/F) 1.5-2.5 LA Volume Index 6.25 mL/m2 (M/F) 16-34 EF AP4 53.30 % GL Strain -17.7 % M-Mode Dimensions RVDd 2.38 cm (0.9-2.6) LVDd 4.67 cm (3.5-5.7) Ao Diam 3.03 cm (2.0-3.7) LVDs 3.42 cm (3.5-5.7) IVSd 0.60 cm (0.6-1.1) PWd 1.05 cm (0.6-1.1) EF (Teich) 52.30% FS 26.80% EDV (Teich) 100.80 mL ESV (Teich) 48.10 mL LV Diastology E Decel Time 150 (160-240 msec) E/A Ratio 1.0 MED E' 7.9 (>= 7 cm/sec) E'/MED E' Ratio 9.29 (<= 14) LAT E' 11.0 (>= 10 cm/sec) E/LAT E' Ratio 6.67 (<= 14) Mitral Valve MV E Max Omar. 73.0 (40-130 cm/s) MV A Velocity 74.0 (40-130 cm/s) E/A Ratio 0.99 MV Decel. Time 150 (160-240 ms) Left Ventricle The left ventricle is normal size. The left ventricular systolic function is normal. The left ventricular ejection fraction is within the normal range. There is normal left ventricular wall thickness. There is normal LV segmental wall motion. The left ventricular diastolic function is normal. LVEF is 55%. Right Ventricle The right ventricle is normal size. The right ventricular systolic function is normal. Atria The left atrium size is normal. The right atrium size is normal. There is no color Doppler evidence of interatrial shunt. Agitated saline administration demonstrates no evidence of interatrial shunt. Aortic Valve The aortic valve opens well. There is no aortic valvular stenosis. No aortic regurgitation is present. Mitral Valve The mitral valve is normal in structure. No evidence of mitral valve stenosis. Trace mitral regurgitation. Tricuspid Valve Tricuspid valve is grossly normal in structure and function. Trace tricuspid regurgitation. There is insufficient TR jet to estimate RVSP. Pulmonic Valve The pulmonary valve is normal in structure. Trace pulmonic regurgitation. Great Vessels The aortic root is normal in size. IVC is normal in size and collapses >50% with inspiration. Pericardium There is no pericardial effusion. Other Information Study Quality: Technically Difficult Conclusion Technically difficult study due to poor acoustic windows. Normal biventricular systolic function. No significant valvular stenosis or regurgitation. There is no color Doppler evidence of interatrial shunt. Agitated saline administration demonstrates no evidence of interatrial shunt. Electronically signed by : Elis Tomlinson MD 09/11/2024 23:47:32
--- OUTSIDE RECORDS SUMMARY | 2024-09-05 08:43 | XMS_ITS | Continuity of Care Document ---
Author Organization [facility] [place] Address [address] [place] [id number] Care Team Providers Care Manual Tester Name Role Phone AKOSUA DEMPSEY Primary Care Provider AKBAR WARNER Orthopedic Surgeon KAMI AREVAOL [facility] [phone] JOE MASCORRO Slitter And Cutter Operator [phone] Assessment Encounter Date Assessment Date Assessment LastModified by Organization Details LastModified Time 07/14/2024 07/14/2024 Patient with evidence of new onset left de Quervain's tenosynovitis, left trigger thumb, and possible left carpal tunnel syndrome. Recommendation was for conservative treatment of her new tendinitis conditions I provided her with a first dorsal compartment corticosteroid injection and left trigger thumb injection. She has an EMG/NCV study already scheduled for 08/09/2024 and we will evaluate both upper extremities for carpal tunnel syndrome and rule out other compressive neuropathy at that time. She will now be placed completely off work until her follow-up visit. She can continue therapy closer to home in the interim as well. Follow-up upon completion of the nerve study to discuss results, monitor response to treatment, and to make any additional treatment plans as needed moving forward at that time. bdevers Not available 07/14/2024 14:02:10 Plan of Treatment Reminders Order Date Submit Date Provider Last Modified By Organization Details Last Modified Time Details Appointments RECHECK 2024 09:15A Carlos WARNER MD Not available Not available Not available Lab None recorded . Referral None recorded . Procedures None recorded . Surgeries None recorded . Imaging None recorded . Medication Orders None recorded . Patient TargetsNo targets recorded. Patient Instructions Encounter Date Encounter Id Patient Instructions Last Modified By Organization Details Last Modified Time 07/14/2024 [id number] Trigger Finger-LC bdevers Not availab le 07/14/2024 14:02:11 DeQuervain's Tendonitis-LC bdevers Not available 07/14/2024 14:02:11 Reason for Referral None Reported. Results Created Date Observation Date Name Description Value Unit Range Abnormal Flag Note LastModifiedBy Organization Detail LastModifiedTime 07/15/1907/14/2024 XR, wrist , [facility] [address] [place] [address] Linda swann Name: CARLOZ swann : [birth year] 80 Linda swann 40 Orderi ng Provid er: RACHEL WARNER EXAM DATE: 2024 EXAM: XR LT WRIST COMPLE TE HISTOR Y: Left wrist pain COMPAR NATHAN: None. FINDIN GS: The bones of the left wrist are normal in alignm ent. There is no eviden ce of fractu re. There are mild degene rative change s. There is mild margin al spurri ng the first carpom etacar pal joint and trisca phe joint. IMPRES HALEY: 1. There are mild degene rative change s in the left wrist. Interp reted By: Marquez polo MD Electr onical ly Signed By: Marquez polo MD on 025 1:49 PM bdevers [facility] [place] [address] , [place], [address], 07/15/2024 08:08:09 08/10/19 25 nerve condu ction study /EMG, upper extre mity (PROC ) No observ ation record ed. bdevers Kami Arevalo MD [facility] [place], [address], 08/09/2024 13:00:27 08/10/19 25 US, wrist No observ ation record ed. bdevers Not Available 2024 13:00:20 Result Notes None recorded. Problems Name Problem SNOMED Code Status Onset Date Resolution Date Notes Provider Name and Address Organization Details Recorded Time Biceps tendinitis 449263704 Active 2015 From Automated Load;Provi davie: Jameel Milligan;Stat us: Active [facility] 11:05:30 Problem Notes None recorded. Procedures Surgical History Date Name Laterality Status Provider Name and Address Organization Details Recorded Time 08/10/19 25 Injection Trigger Finger Ortho completed AKBAR WARNER MD [address] [place] [address] [place], [address] 08/09/2024 12:08:13 08/10/19 25 Injection Joint/Bursa, Interm completed AKBAR WARNER MD [address] [place] [address] [place], [address] 08/09/2024 12:08:09 08/10/19 25 Injection Joint/Bursa, Second, Intermediate [facility] 11:54:27 08/10/19 25 Electromyography (EMG) with Nerve Conduction Study (NCV) completed Roselia Curry [facility] 08/09/2024 07:55:56 07/15/19 25 Injection Trigger Finger Ortho completed Christiano [facility] 07/14/2024 13:53:49 07/15/19 25 Injection Tendon Sheath/Ligament completed Christiano [facility] 07/14/2024 13:53:43 07/06/19 25 Injection Trigger Finger Ortho completed Christiano [facility] 07/05/2024 15:19:03 07/06/19 25 Injection Tendon Sheath/Ligament completed AKBAR WARNER MD [address] [place] [address] [place], [address] 07/05/2024 15:27:32 Imaging Results None recorded. Procedure Notes None recorded. Medical Equipment None Reported. Allergies No known drug allergies Medications Name Sig Start Date Stop Date Status Note LastModified by Organization Details LastModified Time fluoxetine 10 mg tablet Take 1 tablet every day by oral route. active Not Available Not Available No t Available Mobic 7.5 mg tablet Take 1 tablet every day by oral route. active Not Available Not Available No t Available Diamox 250 mg tablet Take 1 tablet every day by oral route. active Not Available Not Available No t Available Asprin Ec Low Dose 81 mg tablet,del ayed release Take 1 tablet every day by oral route. active Not Available Not Available No t Available Dexilant 60 mg capsule, delayed release Take 1 capsule every day by oral route for 56 days. active Not Available Not Available No t Available Dexilant active Medication Descriptio n: dexlansopr azole; refills:0 Not Available Not Available Not Available Nurtec ODT 75 mg disintegra ting tablet Take by oral route. active PRN Not Available Not Available No t Available Vitals Date Recorded Body height Body mass index (BMI) Body weight Provider Name and Address Organization Details Last Updated DateTime 07/14/2024 167.64 cm 34.7 kg/m2 82929.36 g [facility] 07/14/2024 13:46:56 Social History None recorded. Functional Status None recorded. Mental Status None recorded. Family History Nothing Reported. Medical History No medical history recorded. Gynecological HistoryNo gynecological history recorded. 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 finger 9169530 M65.331 Right long trigger finger (CSI: 07/05/2024) Sprain tri angular fibrocartilage 494307007 S63.591A 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 41454193 M18.11 [id number] AKBAR WARNER MD [facility] [address] [place] [id number] 07/14/2024 13:23:04 07/14/2024 13:57:44 Carpal tunnel syndrome 98809228 G56.02 G56.01 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 cotton 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 finger 4498757 M65.331 M65.312 Left trigger thumb (CSI: 07/14/2024) Right long trigger finger (CSI: 07/05/2024) 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 50139691 M18.11 Sprain tri angular fibrocartilage 690839295 S63.591A Radial sty loid tenosynovitis 19532924 M65.4 Left de Quervain's tenosynovi tis (CSI: 07/14/2024) Right de Quervain's tenosynovi tis (CSI: 07/05/2024) Health Concerns Section Related Observation LastModified by Organization Detai ls LastModified Time None Recorded Concern Status LastModified by Organization Details LastModified Time None Recorded Payers Encounter Date Sequence Insurance Name Policy Number Policy Hernández Covered Member ID Hernández Member ID Guarantor Name 07/14/2024 [facility] John Brito Notes Date Note Type Note Provider Name and Address Organization Details Recorded Time 07/14/2024 text/html Patient returns to the clinic today for a follow-up. Reports new onset of left radial wrist and thumb pain due to overcompensation at work. 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 Also endorses new onset numbness and tingling radiating from the volar wrist into the central three digits, especially with driving. In summary, patient is a 48 y/o RHD female who works at [employer]. She presents to the clinic as a workers compensation consultation for evaluation of right radial wrist/ basilar thumb pain, palmar pain in line with the long finger, and numbness and tingling in the hand. Reports symptoms began on 05/27/24 when she was twisting a bolt on at work and felt a popping sensation along the radial wrist with immediate diffuse numbness and tingling throughout the hand lasting for about 30 minutes. Diffuse numbness is improved but now with more constant numbness along the radial thumb and intermittent numbness into the long and ring fingers. Majority of her pain is along the radial wrist and base of her thumb but also reports occasional pain along the ulnar wrist with rotational activities. She has been wearing a thumb spica splint, but this causes some discomfort around the thenar region of the thumb. She has been working with therapy onsite and is on work restrictions. She has been taking [id number]-xfo-gywvrfm medication as needed. Denies history of diabetes. Consult requested by: [facility] Physician: Akosua Dempsey APRN Hand dominance: {{Right* Left ambidext mari}}Location: {{Right Left Bilateral *}} {{Hand Wrist Elbow Oth er Hand/wrist#}} Pain level: {{0 1 2 3* 4 5 6 7 8 9 10}} /10 Date of injury: 05/27/2024Duration: 7 wks Recent Surgery: {{Yes No*}}Procedure:D ate of surgery:Duration: In office procedure? {{Yes* No}}Right long trigger finger (CSI: 07/05/2024)Right de Quervain's tenosynovitis (CSI: 07/05/2024) Previous upper extremity surgery? {{Yes No*}}Procedure:A pproximate date of surgery:Surgeon (if known):Have you or any of your immediate family members been seen by our hand surgeons before? 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 Brito is here for new problem regarding pain in lt wrist along with catching/locking of lt thumb. She believes the symptoms has started after repetitive use at work.BraydonOAMine wanted to be seen for the lt side before her scheduled EMG, in case the lt side needed to be added to the EMG. AKBAR WARNER MD [address] [place], [address], [place] [facility] 07/14/2024 14:02:33 OBGyn Episode No OBEpisode recorded.
--- OUTSIDE RECORDS SUMMARY | 2024-09-05 08:43 | XMS_ITS | Data Portability ---
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 Reflux esophagitis - K21.0 3. Hiatal hernia - K44.9 4. History of colonoscopy - Z98.890 5. Abdominal discomfort - R10.9 6. Fatty infiltration of liver - K76.0 7. Cholelithiasis - K80.20 8. History of diarrhea - Z87.898 # Doran esophagus: Repeat EGD for surveillance 06/2024. Pt to continue Dexilant daily. She has previously failed pantoprazole, omeprazole, Pepcid, Tums and Zantac. She also has history of hiatal hernia. Surgical consultation could be considered in the future if she has uncontrolled reflux despite acid suppression medication with history of Doran's, we discussed if she goes to surgeon due to cholelithiasis she could also discuss hiatal hernia and reflux. - She is due for screening colonoscopy in 2024 based off result of prior colonoscopy. I would recommend EGD and colonoscopy at same time in 2024. # Fatty infiltration of liver noted on US 11/30/2020. - Will check hepatitis panel today to confirm immunity to hepatitis A and B if not offer vaccines at next office visit. - Avoid NSAIDs and alcohol. - Do not take over 2 g of acetaminophen daily. - Consider repeat liver u/s pending labs - Discussed weight loss and healthy diet. [email or web address] Anthony Not available 04/16/2022 09:56:32 10/20/2022 10/20/2022 47-year-old dulce anders with GERD and Doran's esophagus. Reflux symptoms were previously well managed on Dexilant 60 mg daily. This was no longer covered by insurance so she was switched to Pantoprazole 40 mg p.o. BID. She is having intermittent breakthrough symptoms with the Pantoprazole. -Will prescribed Dexlansoprazole 60 mg p.o. daily to replace Pantoprazole. If her symptoms are not improved, I have instructed her to contact the office for further recommendations. -She will be due for surveillance EGD and screening colonoscopy 06/2024. f/u 6 months [email or web address] Not available 10/20/2022 11:19:39 04/22/2023 04/22/2023 47-year-old dulce anders with GERD and Doran's esophagus. Symptoms currently controlled on Dexlansoprazole 60 mg p.o. daily and Pepcid complete PRN. She wishes to pursue anti-reflux surgery due to preference to avoid long-term medications. -Will schedule EGD with Goldberg study -Discussed Manometry testing, but she defers due concern over passage of the probe due to complications from prior sinus surgery. Alternatively, will obtain a barium esophagram to assess esophageal motility. -She will follow-up to discuss the results. Her preference is to undergo hiatal hernia repair with TIF. -Refills provided for Dexlansoprazole. -Next screening colonoscopy was recommended 02/2025. [email or web address] Not available 04/22/2023 13:08:46 05/28/2023 05/28/2023 47-year-old dulce anders with GERD and Doran's esophagus. Symptoms have been overall manageable on Dexlansoprazole 60 mg p.o. daily and Pepcid complete PRN. Due to some intermittent breakthrough symptoms, and patient's desire to avoid long-term medications, she wishes to pursue anti-reflux surgery. 1) GERD with Doran's esophagus: EGD c/w Doran's without dysplasia, reactive squamous mucosa. Goldberg study showed an abnormal DeMeester score with increase acid exposure and reflux time. -BESO was unremarkable. She defers Manometry testing due concern over passage of the probe due to complications from prior sinus surgery. -We have discussed options for anti-reflux surgery. Her preference is to undergo TIF with hiatal hernia repair. Due to history of 2-3 cm hiatal hernia seen on EGD in 2019, I have placed a referral to Dr. Manuel as she may need repair performed at the time of TIF. If no hernia is seen on insufflation, plan would be for straight TIF. -Continue Dexlansoprazole. -Next screening colonoscopy was recommended 02/2025. Not available 05/28/2023 17:13:16 Plan of Treatment Reminders Order Date Submit Date Provider Last Modified By Organization Details Last Modified Time Details Appointments None recorded. Lab None recorded. Referral general surgeon referral 2023 024 [email or web address] Paul Manuel MD, [address] [facility], [place], [address], 4 17:13:50 Procedures None recorded. Surgeries None recorded. Imaging RF, esophagram 2023 024 [facility] (Centralized Scheduling), [address] [facility], [place], [address], 4 10:00:31 Medication Orders dexlansopra zole 60 mg capsule,bip hase delayed release 2023 024 [facility] [place], [address], 4 12:23:27 dexlansopra zole 60 mg capsule,bip hase delayed release 2022 023 [facility] [place], [address], 3 11:19:42 pantoprazol e 40 mg tablet,davon yed release 2021 022 [email or web address] [facility], [address] [place], [address], 4 13:19:00 Patient TargetsNo targets recorded. Patient InstructionsNo instructions recorded. Reason for Referral General Surgeon Referral for Gastro-esophageal reflux disease with esophagitis Referring Physician: Devaughn Castaneda, Gastroenterology, Encounter Date: 05/28/2023 Results Created Date Observation Date Name Description Value Unit Range Abnormal Flag Note LastModifiedBy Organization Detail LastModifiedTime 05/04/19 24 05/04/2023 XR, esoph agram [facility] [address] [place] [address] Phone: Fax: Name: CARLOZ TOBIAS Exam Date: : [birth year] 80 Age 47 Gender : F Access ion: [id number] Physic jeannine: DEVAUGHN CASTANEDA Facili ty: [facility] Facili ty HSV: Outpat ient Exam: ESOPHA GRAM ESOPHA GRAM HISTOR Y: Gastro esopha geal reflux diseas e, hiatal hernia . TECHNI QUE: Patien t ingest ed thick and thin barium contra st. Spot films were perfor med. A total of 41 images were saved. FINDIN GS: The esopha daina demons trates no morpho logic abnorm alitie s. No mucosa l defect s are seen and motili ty appear s normal . No episod es of gastro esopha geal reflux observ ed. 13mm barium tablet passes easily throug h the esopha daina and into the stomac h. FLUORS COPY TIME: 0.2 minute s RADIAT ION DOSE: 93.926 mGy IMPRES HALEY: Unrema rkable barium swallo w. The films were review ed, interp reted, and dictat ed by Dr. Solo Gutierrez Transc ribed by Heidi Moore PA-C Dictat ed By: SOLO GUTIERREZ Transc ribed By: oSlo Gutierrez ribed On: 9:48 AM Electr onical ly signed by: SOLO GUTIERREZ Thank you for referr CARLOZ Galvin to [facility]. Legall y authen ticate d by POPE SOLO Pike 05-04 09:48: 32 CC'ed Logic: Orderi ng Provid er: DANII GAITAN Attend ing Provid er: DANII GAITAN Admitt ing Provid er: DANII GAITAN [email or web address] [facility] [address], [place], [address], 05/29/2023 14:57:05 Result Notes None recorded. Problems Name Problem SNOMED Code Status Onset Date Resolution Date Notes Provider Name and Address Organization Details Recorded Time Doran's esophagus 647800417 Active 2022 Devaughn Castaneda PA-C [address], [place], [address] , [place] [facility] [place] [facility] [place] 3 11:09:44 Gastro-esopha geal reflux disease with esophagitis 929857914 Active 2022 Devaughn Castaneda PA-C [address], [place], [address] , [place] - [facility] & [place] 3 11:09:44 Hiatal hernia 08146761 Active 2022 Devaughn Castaneda PA-C [address], [place], [address] , [place] [facility] [place] [facility] [place] 3 11:17:06 Hiatal hernia with gastroesophag eal reflux 803684556 Active 2023 Devaughn Castaneda PA-C [address], [place], [address] , [place] [facility] [place] [facility] [place] 4 17:15:07 Problem Notes None recorded. 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 Medical Equipment None Reported. Allergies No known drug allergies Medications Name Sig Start Date Stop Date Status Note LastModified by Organization Details LastModified Time mucus er 600mg tab TAKE 1 TO 2 TABLETS BY MOUTH TWICE DAILY NEEDED FOR CONGESTIO N 06/09 completed Not Available Not Available Not Available amoxicillin 500 mg capsule TAKE 1 CAPSULE BY MOUTH TWICE DAILY FOR 10 DAYS 06/09 completed Not Available Not Available Not Available prednisone 10 mg tablet TAKE ONE (1) TABLET EVERY DAY BY ORAL ROUTE FOR FIVE (5) DAYS. 06/09 completed Not Available Not Available Not Available azithromyci n 250 mg tablet TAKE 2 TABLETS BY MOUTH ON DAY 1, AND THEN TAKE 1 TABLET BY MOUTH ONCE A DAY ON DAY 2 THROUGH DAY 5 06/09 completed Not Available Not Available Not Available nystatin 100,000 unit/gram topical ointment APPLY TOPICALLY TWICE DAILY active Not Available Not Available No t Available promethazin e 12.5 mg tablet TAKE ONE (1) TABLET EVERY 8 HOURS BY ORAL ROUTE NEEDED FOR FOUR (4) DAYS. active Not Available Not Available No t Available prednisone 20 mg tablet TAKE 1 TABLET BY MOUTH ONCE DAILY FOR 5 DAYS active Not Available Not Available No t Available acetazolami de 250 mg tablet TAKE THREE (3) TABLETS (750 MG TOTAL) BY MOUTH TWICE DAILY active Not Available Not Available No t Available alprazolam 0.25 mg tablet TAKE 1 TABLET BY MOUTH TWICE DAILY FOR 7 DAYS active Not Available Not Available No t Available aspirin 325 mg tablet,davon yed release TAKE ONE (1) TABLET BY MOUTH EVERY DAY active Not Available Not Available No t Available benzonatate 100 mg capsule TAKE 1 CAPSULE BY MOUTH THREE TIMES DAILY NEEDED FOR COUGH 06/09 completed Not Available Not Available Not Available cephalexin 500 mg capsule 06/09 completed Not Available Not Available Not Available pantoprazol e 40 mg tablet,davon yed release TAKE 1 TABLET BY MOUTH TWICE DAILY 06/09 completed Not Available Not Available Not Available promethazin e 25 mg tablet TAKE ONE (1) TABLET (25 MG TOTAL) BY MOUTH ONE (1) (ONE) TIME EACH DAY IF NEEDED FOR NAUSEA OR VOMITING. 06/09 completed Not Available Not Available Not Available fluoxetine 10 mg capsule TAKE 1 CAPSULE BY MOUTH ONCE DAILY active Not Available Not Available No t Available mupirocin 2 % topical ointment APPLY TO SKIN INFECTION THREE TIMES A DAY FOR 14 DAYS active Not Available Not Available No t Available levofloxaci n 500 mg tablet TAKE 1 TABLET BY MOUTH ONCE DAILY 06/09 completed Not Available Not Available Not Available methylpredn isolone 4 mg tablets in a dose pack TAKE 1 TABLET BY MOUTH DIRECTED active Not Available Not Available No t Available albuterol sulfate HFA 90 mcg/actuati on aerosol inhaler INHALE 1 PUFF BY MOUTH EVERY 4 TO 6 HOURS NEEDED 06/09 completed Not Available Not Available Not Available ondansetron 4 mg disintegrat ing tablet PLACE 1 TABLET BY MOUTH ON THE TONGUE AND ALLOW TO DISSOLVE ONCE OR TWICE DAILY NEEDED active Not Available Not Available No t Available cefdinir 300 mg capsule TAKE 1 CAPSULE BY MOUTH EVERY 12 HOURS FOR 10 DAYS 06/09 completed Not Available Not Available Not Available fluoxetine 20 mg capsule TAKE 1 CAPSULE BY MOUTH ONCE DAILY active Not Available Not Available No t Available fluticasone propionate 50 mcg/actuati on nasal spray,suspe nsion USE 1 SPRAY(S) IN EACH NOSTRIL ONCE DAILY active Not Available Not Available No t Available hydroxyzine pamoate 25 mg capsule TAKE 1 CAPSULE BY MOUTH THREE TIMES DAILY NEEDED FOR INCREASED ANXIETY active Not Available Not Available No t Available dexlansopra zole 60 mg capsule,bip hase delayed release Take 1 tablet by mouth once daily 2024 active Not Available Not Available Not Avai labmartita Nurtec ODT 75 mg disintegrat ing tablet DISSOLVE 1 TABLET BY MOUTH NEEDED FOR MIGRAINE, NO MORE THAN 75MG IN 24 HOURS active Not Available Not Available No t Available Qulipta 60 mg tablet active Not Available Not Available No t Available Vitals Date Recorded Body weight Body mass index (BMI) Body height Body temperature Oxygen saturation Oxygen saturation in Arterial blood by Pulse oximetry Heart rate Heart rate Systolic blood pressure Diastolic blood pressure Provider Name and Address Organization Details Last Updated DateTime 4 74615.6 8 g 32.2 kg/m2 167.64 cm 97.7 [degF] 98 % 98 % 76 /min 75 /min 128 mm[Hg] 87 mm[Hg] Jessie GIBSON [facility] & [place] 4 11:35:08 Date Recorded Body height Body mass index (BMI) Body weight Body temperature Heart rate Systolic blood pressure Diastolic blood pressure Provider Name and Address Organization Details Last Updated DateTime 4 167.64 cm 31 kg/m2 08864.7 4 g 97.3 [degF] 77 /min 132 mm[Hg] 72 mm[Hg] Elizabeth Ty [facility] & [place] 4 13:20:17 Social History Question Answer Notes LastModified by Prole[employer] Details LastModified Time Tobacco Smoking Status Former Smoker Jessie Ibrahim [facility] & [place] 10/14/2022 11:30:08 Do You Have An Advance Directive? No [email or web address] Information not available 10/14/2022 Are You Blind Or Do You Have Difficulty Seeing? No [email or web address] Information not available 10/14/2022 What Was The Date Of Your Most Recent Tobacco Screening? 04/15/2022 [email or web address] Information not available 10/14/2022 Are You Passively Exposed To Smoke? No [email or web address] Information not available 10/14/2022 How Many Years Have You Smoked Tobacco? 20 [email or web address] Information not available 10/14/2022 Sex: Female Functional Status Question Answer Note LastModified by Prole[employer] Details LastModified Time Do you use any illicit or recreational drugs? No [email or web address] Information not available 10/14/2022 What is your level of alcohol consumption? None [email or web address] Information not available 10/14/2022 Do you or have you ever used smokeless tobacco? [id number] [email or web address] Information n ot available 10/14/2022 What is your exercise level? Occasional [email or web address] Information not available 10/14/2022 Mental Status Question Answer Note LastModified by Organization D etails LastModified Time Do you feel stressed (tense, restless, nervous, or anxious, or unable to sleep at night)? FH3402-9 [email or web address] Information not available 10/14/2022 Family History Relationship Description Onset Age of this Age Resolved Age Notes LastModified by Organization Details LastModified Time Father Disorder of endocrine system pt. added direct ly (04/15) [email or web address] Not available 04/15/2022 21:04:52 Father Kidney disease pt. added direct ly (04/15) [email or web address] Not available 04/15/2022 21:05:07 Mother Heart disease pt. added direct ly (04/15) [email or web address] Not available 04/15/2022 21:05:17 Mother Disorder of thyroid gland pt. added direct ly (04/15) [email or web address] Not available 04/15/2022 21:05:35 Medical History Condition Response Other Y Reflux/GERD Y Obstructive Sleep Apnea Y Gynecological History Statement/Question Response Abnormal Pap N 08/15/2019 Date of LMP 07/19/2004 Sexually Active? Y Menses Monthly N Current Control Method Hysterectom y Obstetrics History GPAL:G 0 P 0 0 0 0 Past Encounters Encounter ID Performer Location Encounter Start Date Encounter Closed Date Diagnosis/Indication Diagnosis SNOMED-CT Code Diagnosis ICD10 Code Diagnosis Note [id number] Estela Barbosa NP [facility] [address] [place] [address] 04/16/2022 09:09:07 04/16/2022 09:41:06 Doran's esophagus 276405232 K22.70 - will try pantoprazo le BID while awaiting Dexilant to be approved hopefully- as stated above patient has gone through multiple heartburn medication s with no relief Gastro-eso phageal reflux disease with esophagitis 457386312 K21.00 [id number] Devaughn Castaneda PA-C [facility] [address] [place] [address] 10/20/2022 10:43:29 10/20/2022 11:17:37 Doran's esophagus 449931171 K22.70 - will try pantoprazo le BID while awaiting Dexilant to be approved hopefully- as stated above patient has gone through multiple heartburn medication s with no relief Gastro-eso phageal reflux disease with esophagitis 713953362 K21.00 Hiatal hernia 72449044 K 44.9 History of colonoscopy 9285166224 09 Z98.890 [id number] Devaughn Castaneda PA-C [facility] [address] [place] [address] 04/22/2023 10:30:57 04/22/2023 12:26:08 Doran's esophagus 353419707 K22.70 Gastro-eso phageal reflux disease with esophagitis 079400493 K21.00 Hiatal hernia 68206999 K 44.9 History of colonoscopy 4616986028 09 Z98.890 [id number] Devaughn Castaneda PA-C [facility] [address] [place] [address] 05/28/2023 15:44:24 05/28/2023 16:23:01 Doran's esophagus 537014361 K22.70 Gastro-eso phageal reflux disease with esophagitis 185594866 K21.00 Hiatal hernia 44234972 K 44.9 History of colonoscopy 0986556399 09 Z98.890 [id number] PAUL MANUEL MD [facility] [address] [facility] [address] [place] [address] 06/09/2023 13:11:16 06/11/2023 11:15:14 Gastroesophageal reflux disease 522641127 K21.00 We discussed the pathophysi ology of gastroesop hageal reflux in the setting of and independen t of hiatal hernias as well as the operative and non-operat suki options for continued management . She is electing to proceed with surgical interventi on however her requires surgery and she would like to schedule her surgery after he has recovered. She will alert us when she is ready to proceed. We will plan to proceed with antireflux surgery including a fundoplica tion and possible hiatal hernia repair if it is present at the time of surgery since EGD reports are conflictin g regarding her hiatal hernia status. Doran's esophagus 3029 55427 K22.70 Diagnosed and followed by karsten barry. Unable to undergo TIF procedure due to Barretts history. Discussed options of medical management , LINX, TIF, cTIF, fundoplica tion with and without hiatal hernia repair, and raf-en-Y. She is interested in fundoplica tion with or without hernia repair and will alert us when she is ready to schedule surgery. Health Concerns Section Related Observation LastModified by Organization Detai ls LastModified Time None Recorded Concern Status LastModified by Organization Details LastModified Time None Recorded Advance Directives Directive N: Payers Insurance Date Sequence Insurance Name Policy Number Policy Hernández Covered Member ID Hernández Member ID Guarantor Name 11/07/2023 1 [place] [employer] OF [facility] (O) [id number] [place]z L [place] [id number] Carloz L [place] 04/22/2023 2 [employer] [facility] (MEDICAID HMO) [place]z [employer] [place] [id number] Carloz L [place] 03/24/2022 1 [facility] [id number] [place]z L [place] [id number] Carloz L [place] 04/16/2022 2 [employer] [facility] (MEDICAID HMO) [employer] [place] [id number] Carloz L [place] Notes Date Note Type Note Provider Name and Address Organization Details Recorded Time 04/16/2022 text/html PREVIOUS: Ms. Dominic perez is a 39 year old white female who presents for follow up for EGD for uncontrolled reflux with use of PPI and H2 therapy. Pt reports heartburn has improved since starting Dexilant. Pt has taken 2 doses of Pepcid for breakthrough heartburn since EGD 12/27/14. Pt expresses concern regarding diarrhea she has experienced following meals since high school. Pt reports some improvement in diarrhea since increasing fiber in the diet. Pt experiences bilateral lower abdominal pain, relieved with bowel movement. Pt has recently noticed increased gurgling from abdomen and increased gas. Pt also reports abdominal bloating. PREVIOUS: EGD 06/27/[address] walters due to history of Doran's esophagus and acid reflux revealed findings consistent with previous diagnosis of Doran's esophagus, 2-3 cm high sliding hiatal hernia and otherwise appeared normal. Biopsy of the GE junction revealed reflux esophagitis and was negative for metaplasia, dysplasia or malignancy. She also underwent colonoscopy 02/26/15 due to loose stools, etc. This showed no abnormalities. PREVIOUS: Mrs. Tobias (formerly Romulo) is a very pleasant 45 yo female who returns today for follow up regarding history of Doran's esophagus and reflux as well as diarrhea and abdominal discomfort. She is taking Dexilant daily, it was approved by her insurance after her last office visit. Dexilant controls reflux. She reports since starting acetazolamide she has experienced more formed bowel movements. She usually has 1 bowel movement per day. She continues to experience intermittent abdominal discomfort that is aggravated by onions, onion powder and cabbage. After her last office visit, she had ultrasound of the gallbladder on 11/30/2020 that revealed uncomplicated cholelithiasis and fatty infiltration of the liver (10/24/21)Patient is here today for follow-up in refills on her medication. Reports Dexilant has relieved her symptoms of nausea and heartburn. Denies dysphagia or hematemesis. Denies diarrhea constipation or hematochezia. Denies abdominal pain. (04/16/22) Patient is calling today for refills/ help with Dexilant. Reports she has recently started working at [employer] and now has [employer] insurance as her primary insurance, which does not cover Dexilant. Reports she called her insurance company and they told her that they were unsure if a prior authorization would change the fact that they do not cover this medication; however, she would like to try. Reports she is been out of her Dexilant for couple of days now and symptoms of heartburn have returned.A total of 12 minutes were spent with the patient during this telephone encounter. Greater than 50% of the time spent in medical decision making and evaluation. Estela Barbosa, CASSIDY [id number], [place], [address], [facility] - [place] & [place] 04/16/2022 09:57:53 10/20/2022 text/html Ms. Tobias is a very pleasant 47-year-old female with history of Doran's esophagus, diagnosed in 2014 who presents via telephonic encounter today for follow-up regarding GERD. Her symptoms were previously well managed on Dexilant 60 mg p.o. daily. She ran into an issue with insurance coverage and was switched to Pantoprazole 40 mg. Once daily dosing of Pantoprazole was ineffective. She is currently taking Pantoprazole 40 mg twice daily and Pepcid complete as needed for breakthrough symptoms. Her symptoms are being managed Okay with this, but not as well as when she was taking the Dexilant. She denies any additional problems today. I spent a total of 12 minutes during this real-time clinical encounter that was initiated by the patient which started at 1101 and ended at 1113. Consent was obtained to engage in telephonic service. Greater than 50% of the time spent was devoted to counseling and coordinating care including review of patient record, patient lab data and studies as well as discussing diagnostic evaluation and workup, planned therapeutic intervention and further disposition of care. Devaughn Castaneda PA-C [address], [place], [address], [facility] & [place] 10/20/2022 11:20:47 04/22/2023 text/html Ms. Tobias is a very pleasant 47-year-old female with history of Doran's esophagus, diagnosed in 2014 who presents to the office today for follow-up regarding GERD. She has continued treatment with Dexlansoprazole 60 mg p.o. daily. Her symptoms are managed well overall with this. She takes Pepcid complete as needed for occasional breakthrough symptoms. She reports some concerns over taking PPI long-term and is interested in pursuing TIF procedure. She has a history of 2-3 cm hiatal hernia seen on EGD in 2019. She denies any new complaints today. Devaughn Castaneda PA-C [address], [place], [id number], [place] [facility] & [place] 04/22/2023 13:09:16 05/28/2023 text/html PREVIOUS (04/22/23 ): Ms. Tobias is a very pleasant 47-year-old female with history of Doran's esophagus, diagnosed in 2014 who presents to the office today for follow-up regarding GERD. She has continued treatment with Dexlansoprazole 60 mg p.o. daily. Her symptoms are managed well overall with this. She takes Pepcid complete as needed for occasional breakthrough symptoms. She reports some concerns over taking PPI long-term and is interested in pursuing TIF procedure. She has a history of 2-3 cm hiatal hernia seen on EGD in 2019. She denies any new complaints today. CURRENT (05/28/23): Ms. Tobias presents via telephonic encounter for follow-up regarding Doran's esophagus and GERD. She underwent EGD with Goldberg study on 05/13/23 with findings again suggestive of Doran's esophagus. GE junction biopsy showed intestinal metaplasia without dysplasia with background of reactive squamous mucosa. Recent esophagram was performed that showed no evidence of hiatal hernia. She did not have an apparent hiatal hernia on the EGD, however previous EGD in 2019 reported a 2-3 cm hiatal hernia at that time. Currently, she is doing okay on the Dexilant. She has some intermittent breakthrough heartburn. She desires to avoid long-term PPI therapy if possible. I spent a total of 14 minutes during this real-time clinical encounter that was initiated by the patient which started at 1552 and ended at 1606. Consent was obtained to engage in telephonic service. Greater than 50% of the time spent was devoted to counseling and coordinating care including review of patient record, patient lab data and studies as well as discussing diagnostic evaluation and workup, planned therapeutic intervention and further disposition of care. Devaughn Castaneda PA-C [address] , [place], [id number], [facility] - [place] - [place] & [place] 05/28/2023 17:14:31 06/09/2023 text/html The patient is a 47 year old female who presents with concerns of chronic reflux disease. She describes pain especially with laying flat and especially in the evenings. She notes that a few years ago she had an EGD which identified a hiatal hernia. She recently had another EGD and this did not identify a hernia. She has been found to have barrets esophagus however. She was intially interested in a TIF prcedure; however, due to her Barretts esophagus she cannot proceed with this. She has also investigated a LINX procedure but due to her need for frequrent MRIs (hydrocephalus), she cannot undergo that procedure either. She states that she does not wish to take PPIs for the rest of her life and that these only provide partial relief anyway. She would like to know her surgical options. PAUL MANUEL MD [address], [place], [id number], [facility] - [place] - [place] & [place] 06/09/2023 20:53:32 OBGyn Episode No OBEpisode recorded.
== END 2024-09-05 23:59 | disposition home or self-care (01) ==
LOC: RT 08:41
PROVIDERS: PCP Nurse Practitioner Family; Visit Provider Nurse Practitioner Family
DX: G47.33 Obstructive sleep apnea (adult) (pediatric) (principal); K21.9 Gastro-esophageal reflux disease without esophagitis; R01.1 Cardiac murmur, unspecified; Z87.891 Personal history of nicotine dependence
CPT/HCPCS: 93306

== ENCOUNTER 2024-09-16 15:00 | Outpatient (RCR) | payer BC, SELFPAY | END 2024-09-16 23:59 | disposition home or self-care (01) | LOC: PT 15:00 | PROVIDERS: PCP Nurse Practitioner Family; Visit Provider Nurse Practitioner Family | DX: M54.2 Cervicalgia (principal); M54.50 Low back pain, unspecified | CPT/HCPCS: 97014; 97110; 97140; 97164; 97530; G0283 ==

== ENCOUNTER 2024-09-20 13:01 | Outpatient (RCR) | payer BC, SELFPAY | END 2024-09-20 23:59 | disposition home or self-care (01) | LOC: PT 13:01 | PROVIDERS: PCP Nurse Practitioner Family; Visit Provider Nurse Practitioner Family | DX: M54.50 Low back pain, unspecified (principal); M54.2 Cervicalgia | CPT/HCPCS: 97014; 97110; 97140; G0283 ==